=== PATIENT | female | born 1955 | race Caucasian/White ===

== ENCOUNTER → 2022-03-16 | Outpatient (CLI) | payer MEDICARE, OTHER | LOC: M WUC 11:59 | PROVIDERS: ATTEND Physician Assistant | DX: S83.402A Sprain of unspecified collateral ligament of left knee, initial encounter (principal); W18.30XA Fall on same level, unspecified, initial encounter; Y92.009 Unspecified place in unspecified non-institutional (private) residence as the place of occurrence of the external cause ==